=== PATIENT | female | born 1955 | race African-American/Black ===

== ENCOUNTER 2017-01-24 10:59 | Emergency (ER) | payer MEDICARE ==
[~2017-01-24] VITALS: Ht 165.1 cm; Wt 54.4 kg
[~2017-01-24 10:59] MED LIST: ATIVAN2 MG ORAL; VISTARIL50 MG ORAL
[2017-01-24 11:57] LABS: BASOPHILS % (AUTO) 0.7 % (0.0-2.0); EOSINOPHILS % (AUTO) 0.2 % (0.0-3.0); LYMPHOCYTES % (AUTO) 11.7 % (20.0-45.0); MEAN CORPUSCULAR HEMOGLOBIN 27.8 PG (27.0-31.0); MEAN CORPUSCULAR VOLUME 87 FL (80-99); MONOCYTES % (AUTO) 5.6 % (1.0-10.0); NEUTROPHILS % (AUTO) 81.7 % (45.0-75.0); PLATELET COUNT 364 K/UL (150-450); RED BLOOD COUNT 5.26 M/UL (4.20-5.40); RED CELL DISTRIBUTION WIDTH 13.7 % (11.6-14.8); WHITE BLOOD COUNT 15.1 K/UL (4.8-10.8)
[2017-01-24 11:58] LABS: APPEARANCE,URINE CLEAR; KETONES,URINE NEGATIVE (NEGATIVE); LEUKOCYTE ESTERASE ,URINE NEGATIVE (NEGATIVE); NITRITE,URINE NEGATIVE (NEGATIVE); PH,URINE 7 (4.5-8.0); PROTEIN,URINE 2+ (NEGATIVE); UROBILINOGEN,URINE NORMAL MG/DL (0.0-1.0)
[2017-01-24 12:08] LABS: RBC,URINE 0-2 /HPF (0 - 2)
[2017-01-24 12:09] LABS: BACTERIA,URINE FEW /HPF; SQUAMOUS EPITHELIAL CELL,UR FEW /LPF (NONE/OCC); WBC,URINE 0-2 /HPF (0 - 2)
[2017-01-24 12:16] LABS: ACETAMINOPHEN < 10 ug/mL (10-30); ALANINE AMINOTRANSFERASE 10 U/L (3-33); ALBUMIN/GLOBULIN RATIO 1.9 (1.0-2.7); ALCOHOL < 10 mg/dL; ANION GAP 16 (5-15); ASPARTATE AMINO TRANSFERASE 14 U/L (5-40); CALCIUM 10.4 mg/dL (8.6-10.2); CARBON DIOXIDE 23 mEQ/L (20-30); CHLORIDE 100 mEQ/L (98-107); CREATININE 0.7 mg/dL (0.5-0.9); GLOMERULAR FILTRATION RATE > 60 mL/min (>60); HEMOLYSIS 4; POTASSIUM 4.2 mEQ/L (3.4-4.9); SODIUM 139 mEQ/L (135-145); TROPONIN I < 0.30 ng/mL (<=0.30)
--- NOTE | 2017-01-24 12:19 | Diagnostic Imaging Report ---
Indication: SOB Technique: One view of the chest Comparison: none Findings: Lungs and pleural spaces are clear. Heart size is normal. Impression: No acute process
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
[2017-01-24 14:28] VITALS: BP 118/78
[2017-01-24 15:00] VITALS: BP 120/70
[2017-01-24 16:45] VITALS: BP 126/74
[2017-01-24 18:25] VITALS: BP 124/91
[2017-01-24 18:27] VITALS: BP 124/91
== END 2017-01-24 18:28 ==
LOC: EDUNIT# 10:59 → EDBD 10:59 → EMR 11:20
DX: F41.9 Anxiety disorder, unspecified (principal); F29 Unspecified psychosis not due to a substance or known physiological condition; F20.9 Schizophrenia, unspecified; Z88.2 Allergy status to sulfonamides
CPT/HCPCS: 36415; 71010; 80053; 80300; 81003; 84443; 84484; 85025; 99285; G0480; 80329

== ENCOUNTER 2017-07-19 08:57 | Inpatient (IN) | payer MEDICARE, MEDICAID ==
[~2017-07-19] VITALS: Ht 165.1 cm; Wt 72.6 kg
[2017-07-19 16:00] VITALS: BP 122/72
[2017-07-19] MEDS ORDERED: TRAZODONE HCL150 MG ORAL (16:33)
[2017-07-19] MEDS ORDERED: ALPRAZOLAM1 MG ORAL (16:33)
[2017-07-19] MEDS ORDERED: ABILIFY2 MG ORAL (16:33)
[2017-07-19] MEDS ORDERED: NORCO1 E1 ORAL (16:33)
[2017-07-19] MEDS ORDERED: SYNTHROID75 MCG ORAL (16:33)
[2017-07-19] MEDS ORDERED: Zolpidem 5mg tab ORAL PRN (17:00)
[2017-07-19] MEDS: ALPRAZolam 0.5mg tab ORAL SCH (18:06)
[2017-07-19] MEDS: Ertapenem 1 GM in NS 55 ML IVPB SCH (18:07)
[2017-07-19 18:16] LABS: BASOPHILS % (AUTO) 1.3 % (0.0-2.0); EOSINOPHILS % (AUTO) 1.8 % (0.0-3.0); LYMPHOCYTES % (AUTO) 25.9 % (20.0-45.0); MEAN CORPUSCULAR HEMOGLOBIN 30.4 PG (27.0-31.0); MEAN CORPUSCULAR HGB CONC 34.6 G/DL (32.0-36.0); MEAN CORPUSCULAR VOLUME 88 FL (80-99); MEAN PLATELET VOLUME 7.5 FL (6.5-10.1); MONOCYTES % (AUTO) 6.4 % (1.0-10.0); NEUTROPHILS % (AUTO) 64.7 % (45.0-75.0); PLATELET COUNT 272 K/UL (150-450); RED CELL DISTRIBUTION WIDTH 13.6 % (11.6-14.8); WHITE BLOOD COUNT 9.7 K/UL (4.8-10.8)
[2017-07-19 18:46] LABS: ANION GAP 10 (5-15); CALCIUM 9.6 mg/dL (8.6-10.2); CARBON DIOXIDE 27 mEQ/L (20-30); CHLORIDE 102 mEQ/L (98-107); CREATININE 0.7 mg/dL (0.5-0.9); GLOMERULAR FILTRATION RATE > 60 mL/min (>60); HEMOLYSIS 6; POTASSIUM 3.7 mEQ/L (3.4-4.9); SODIUM 139 mEQ/L (135-145)
[2017-07-19 20:00] VITALS: BP 113/68
[2017-07-19] MEDS: TraZODone 100mg tab ORAL SCH (20:39)
[2017-07-19] MEDS: Heparin 5000 units/ml inj SUBQ SCH (20:46)
[2017-07-20 00:13] VITALS: BP 115/70
[2017-07-20 04:17] VITALS: BP 116/65
[2017-07-20] MEDS: Norco 7.5mg/325mg tab ORAL PRN ×3 (06:17→21:07)
[2017-07-20 08:22] VITALS: BP 114/72
--- NOTE | 2017-07-20 08:24 | History & Physical ---
History and Physical History & Physicial 61-year-old female brought in for recent UTI with multidrug resistance. Patient reportedly with dysuria and frequency. Patient denied any fevers or chills at this time. She states that she has a history of thyroiditis as as well as brain tumor but reportedly benigh. Patient has a reported history of paranoid schizophrenia but controlled. Patient is currently disabled but indepedent Allergies: SULFA (SULFONAMIDE ANTIBIOTICS) (Verified Allergy, Unknown, 08/26/16) Past Medical History: schizophrenia, benign brain tumor, thyroiditis Now: No Reviewed of systems: otherwise negative Physical exam WDWN NAD clear breath sounds bilaterally without rhonchi or wheeze [id number] without MRG NABS nontender no HSM no CCE nonfocal Labs Test 07/19/17 18:04 White Blood Count 9.7 K/UL (4.8-10.8) Red Blood Count 4.30 M/UL (4.20-5.40) Hemoglobin 13.1 G/DL (12.0-16.0) Hematocrit 37.8 % (37.0-47.0) Mean Corpuscular Volume 88 FL (80-99) Mean Corpuscular Hemoglobin 30.4 PG (27.0-31.0) Mean Corpuscular Hemoglobin Concent 34.6 G/DL (32.0-36.0) Red Cell Distribution Width 13.6 % (11.6-14.8) Platelet Count 272 K/UL (150-450) Mean Platelet Volume 7.5 FL (6.5-10.1) Neutrophils (%) (Auto) 64.7 % (45.0-75.0) Lymphocytes (%) (Auto) 25.9 % (20.0-45.0) Monocytes (%) (Auto) 6.4 % (1.0-10.0) Eosinophils (%) (Auto) 1.8 % (0.0-3.0) Basophils (%) (Auto) 1.3 % (0.0-2.0) Sodium Level 139 mEQ/L (135-145) Potassium Level 3.7 mEQ/L (3.4-4.9) Chloride Level 102 mEQ/L (98-107) Carbon Dioxide Level 27 mEQ/L (20-30) Anion Gap 10 (5-15) Blood Urea Nitrogen 8 mg/dL (7-23) Creatinine 0.7 mg/dL (0.5-0.9) Estimat Glomerular Filtration Rate > 60 mL/min (>60) Glucose Level 135 mg/dL (74-106) Calcium Level 9.6 mg/dL (8.6-10.2) IMPRESSION MDR UTI possible sepsis psych disorder thyroiditis PLAN IV hydration IV antibiotics ID evaluation resume home meds impression, plan, and exam edited and reviewed in detail care discussed with ZULY HILL Jul 20, 2017 08:23
[2017-07-20] MEDS: ALPRAZolam 0.5mg tab ORAL SCH ×3 (08:41→17:25)
[2017-07-20] MEDS: Heparin 5000 units/ml inj SUBQ SCH ×2 (08:45→21:13)
[2017-07-20] MEDS ORDERED: Ciprofloxacin 500mg tab ORAL SCH (09:00)
--- NOTE | 2017-07-20 10:31 | Diagnostic Imaging Report ---
Indication: Shortness of breath Technique: XRAY CHEST 1 V Comparison: 01/24/17 Findings: Cardiomediastinal silhouette is stable. There are mild linear opacities in the lung bases. There is no consolidation or pleural effusion. Osseous structures are stable. Atherosclerotic changes are seen. Impression: Mild linear lung base opacities could represent atelectasis. No obvious consolidation. Followup recommended.
[2017-07-20 12:51] VITALS: BP 123/64
[2017-07-20] MEDS ORDERED: Tubing IV Secondary IV ONE (16:08)
[2017-07-20] MEDS ORDERED: NS 550ML IV ONE (16:08)
[2017-07-20 16:53] VITALS: BP 114/78
[2017-07-20] MEDS: Ertapenem 1 GM in NS 55 ML IVPB SCH (17:26)
[2017-07-20 20:00] VITALS: BP 129/79
[2017-07-20] MEDS: TraZODone 100mg tab ORAL SCH (21:06)
--- NOTE | 2017-07-20 22:15 | Consultation ---
DATE OF CONSULTATION: 07/20/2017 INFECTIOUS DISEASE CONSULTATION This consult is for coverage of Dr. Banegas. CONSULTING PHYSICIAN: Louis Brown M.D. PRIMARY ATTENDING PHYSICIAN: Meek Higgins M.D. REASON FOR CONSULT: UTI. HISTORY OF PRESENT ILLNESS: This is a 62-year-old white female, admitted yesterday from home. The patient had a recent history of urinary symptoms. She had to go to the bathroom frequently. Urine culture was positive for multi-drug resistant organism, but unfortunately it is not available in the chart. The patient had no fever or chills. No systemic symptoms. PAST MEDICAL HISTORY: Significant for paranoid schizophrenia and pituitary tumor. According to the patient, the patient has benign hypothyroidism. ALLERGIES: Allergic to aspirin and sulfa drugs. MEDICATIONS: Protonix, Abilify, Cipro, levothyroxine, heparin, trazodone, ertapenem, alprazolam, Tylenol, Ambien, Mylanta, and [place]. SOCIAL HISTORY: She lives alone, single. She smokes 10 cigarettes a day. Denies alcohol or drug abuse. REVIEW OF SYSTEMS: No fever. No chills. She has occasional cough. No nausea. No vomiting. No diarrhea. No significant dysuria, but has frequency and urgency. She has some lower back pain. PHYSICAL EXAMINATION: GENERAL APPEARANCE: She is in no acute distress. Awake, alert, and responsive. VITAL SIGNS: Temperature 98.1 degrees, pulse 81, and blood pressure 114/72. HEAD AND NECK: No oral lesion. HEART: S1 and S2 regular. LUNGS: Clear. ABDOMEN: Soft, nontender. No CVA tenderness. EXTREMITIES: She has no edema. NEURO: She is awake, alert, oriented, and responsive. LABORATORY AND DIAGNOSTIC DATA: WBC 9.7, hemoglobin 13.1, hematocrit 37.8, and platelet 272,000. Sodium 139, potassium 3.7, chloride 102, bicarbonate 27, BUN 8, and creatinine 0.7. Glucose is unspecified. IMPRESSION: 1. Urinary tract infection with urinary symptoms, likely cystitis. The patient has nicotine dependence. 2. Schizophrenia. 3. Hypothyroidism. 4. History of benign brain tumor. RECOMMENDATION: We will continue with ertapenem. We will discontinue Cipro. Discussed about smoking cessation with the patient and we will start nicotine patch. At the end of my exam, I thank, Dr. Higgins, for involving me in the care of this patient. Louis Brown M.D. DR: BRENT JOB#: [id number] CC:
[2017-07-21] MEDS: Norco 7.5mg/325mg tab ORAL PRN ×4 (03:57→20:45)
[2017-07-21 04:00] VITALS: BP_SYST 142; BP_SYST 162; BP_DIAS 65
[2017-07-21 08:00] VITALS: BP 132/75
[2017-07-21] MEDS: ALPRAZolam 0.5mg tab ORAL PRN ×2 (08:03→16:00)
[2017-07-21] MEDS: Heparin 5000 units/ml inj SUBQ SCH ×3 (08:06→20:37)
--- NOTE | 2017-07-21 12:11 | Infectious Diseases Prog Note ---
Assessment/Plan Assessment/Plan antibiotics : ertapenem A 1. UTI 2. schizophrenia 3. hypothyroidism P 1. continue ertapenem 2. will follow up cultures Subjective Constitutional: Denies: chills, fever Respiratory: Denies: dry cough, shortness of breath Gastrointestinal/Abdominal: Denies: diarrhea, nausea, vomiting Musculoskeletal: Reports: pain - body Allergies: Coded Allergies: ASPIRIN (Verified Allergy, Unknown, hives, 07/19/17) SULFA (SULFONAMIDE ANTIBIOTICS) (Verified Allergy, Unknown, 08/26/16) Objective Vital Signs Last 24 Hour Vital Signs Date Time Temp Pulse Resp B/P Pulse Ox O2 Delivery O2 Flow Rate FiO2 07/21/17 09:53 97.9 07/21/17 08:00 97.5 69 18 132/75 97 Room Air 07/21/17 04:00 97.9 61 18 142/65 98 Room Air 07/20/17 21:07 97.2 07/20/17 20:00 97.2 72 18 129/79 95 Room Air 07/20/17 16:53 98.0 70 20 114/78 97 Room Air 07/20/17 12:51 98.7 66 18 123/64 97 Room Air Height (Feet): 5 Height (Inches): 5.00 Weight (Pounds): 160 Respiratory/Chest: lungs clear Cardiovascular: normal rate, regular rhythm, no gallop/murmur Abdomen: soft, non tender Extremities: no edema Microbiology Date/Time Source Procedure Growth Status 07/19/17 18:04 Blood Blood Culture - Preliminary NO GROWTH AFTER 24 HOURS Resulted 07/19/17 17:50 Blood Blood Culture - Preliminary NO GROWTH AFTER 24 HOURS Resulted 07/19/17 17:00 Urine,Clean Catch Urine Culture - Preliminary Mixed Gram Positive Organism Resulted ELI RUDD Jul 21, 2017 12:11
[2017-07-21 12:15] VITALS: BP 105/75
[2017-07-21 16:05] VITALS: BP 115/72
[2017-07-21] MEDS: Ertapenem 1 GM in NS 55 ML IVPB SCH (17:45)
--- NOTE | 2017-07-21 18:01 | General Progress Note ---
Assessment/Plan Assessment/Plan IMPRESSION MDR UTI possible sepsis psych disorder thyroiditis PLAN IV hydration as is IV antibiotics ID evaluation noted care noted await further care impression, plan, and exam edited and reviewed in detail care discussed with RN Subjective Allergies: Coded Allergies: ASPIRIN (Verified Allergy, Unknown, hives, 07/19/17) SULFA (SULFONAMIDE ANTIBIOTICS) (Verified Allergy, Unknown, 08/26/16) Subjective co pain and anxiety Objective Last 24 Hour Vital Signs Date Time Temp Pulse Resp B/P Pulse Ox O2 Delivery O2 Flow Rate FiO2 07/21/17 16:05 98.2 76 18 115/72 98 Room Air 07/21/17 15:10 97.0 07/21/17 12:15 97.0 71 18 105/75 95 Room Air 07/21/17 08:00 97.5 69 18 132/75 97 Room Air 07/21/17 04:00 97.9 61 18 142/65 98 Room Air 07/20/17 21:07 97.2 07/20/17 20:00 97.2 72 18 129/79 95 Room Air Intake and Output 07/20/17 07/21/17 19:00 07:00 Intake Total 720 ml 500 ml Balance 720 ml 500 ml Intake Oral 720 ml 500 ml # Voids 1 2 Labs Test 07/19/17 18:04 White Blood Count 9.7 K/UL (4.8-10.8) Red Blood Count 4.30 M/UL (4.20-5.40) Hemoglobin 13.1 G/DL (12.0-16.0) Hematocrit 37.8 % (37.0-47.0) Mean Corpuscular Volume 88 FL (80-99) Mean Corpuscular Hemoglobin 30.4 PG (27.0-31.0) Mean Corpuscular Hemoglobin Concent 34.6 G/DL (32.0-36.0) Red Cell Distribution Width 13.6 % (11.6-14.8) Platelet Count 272 K/UL (150-450) Mean Platelet Volume 7.5 FL (6.5-10.1) Neutrophils (%) (Auto) 64.7 % (45.0-75.0) Lymphocytes (%) (Auto) 25.9 % (20.0-45.0) Monocytes (%) (Auto) 6.4 % (1.0-10.0) Eosinophils (%) (Auto) 1.8 % (0.0-3.0) Basophils (%) (Auto) 1.3 % (0.0-2.0) Sodium Level 139 mEQ/L (135-145) Potassium Level 3.7 mEQ/L (3.4-4.9) Chloride Level 102 mEQ/L (98-107) Carbon Dioxide Level 27 mEQ/L (20-30) Anion Gap 10 (5-15) Blood Urea Nitrogen 8 mg/dL (7-23) Creatinine 0.7 mg/dL (0.5-0.9) Estimat Glomerular Filtration Rate > 60 mL/min (>60) Glucose Level 135 mg/dL (74-106) Calcium Level 9.6 mg/dL (8.6-10.2) Height (Feet): 5 Height (Inches): 5.00 Weight (Pounds): 160 Objective WDWN NAD clear breath sounds bilaterally without rhonchi or wheeze [id number] without MRG NABS nontender no HSM no CCE nonfocal ZULY BUSTAMANTE Jul 21, 2017 18:01
[2017-07-21 20:00] VITALS: BP 118/75
[2017-07-21] MEDS: TraZODone 100mg tab ORAL SCH (20:38)
[2017-07-22] VITALS: BP 110/71
[2017-07-22] MEDS: ALPRAZolam 0.5mg tab ORAL PRN ×2 (00:27→09:05)
[2017-07-22] MEDS: Norco 7.5mg/325mg tab ORAL PRN ×2 (03:04→07:48)
[2017-07-22 04:00] VITALS: BP 120/75
[2017-07-22 07:29] VITALS: BP 119/96
--- NOTE | 2017-07-22 08:42 | General Progress Note ---
Assessment/Plan Assessment/Plan IMPRESSION MDR UTI possible sepsis psych disorder thyroiditis PLAN IV hydration to dc IV antibiotics to dc repeat urine culture negative ID evaluation noted care noted dc home and complete cipro home health on discharge for nursing impression, plan, and exam edited and reviewed in detail care discussed with RN Subjective Allergies: Coded Allergies: ASPIRIN (Verified Allergy, Unknown, hives, 07/19/17) SULFA (SULFONAMIDE ANTIBIOTICS) (Verified Allergy, Unknown, 08/26/16) Subjective co pain and anxiety no dysuria no frequency Objective Last 24 Hour Vital Signs Date Time Temp Pulse Resp B/P Pulse Ox O2 Delivery O2 Flow Rate FiO2 07/22/17 07:29 98.0 77 20 119/96 95 Room Air 07/22/17 04:00 97.7 79 18 120/75 98 Room Air 07/22/17 00:00 97.0 76 18 110/71 100 Room Air 07/21/17 20:00 97.0 84 18 118/75 94 Room Air 07/21/17 16:05 98.2 76 18 115/72 98 Room Air 07/21/17 15:10 97.0 07/21/17 12:15 97.0 71 18 105/75 95 Room Air Intake and Output 07/21/17 07/22/17 19:00 07:00 Intake Total 450 ml 720 ml Balance 450 ml 720 ml Intake Oral 450 ml 720 ml # Voids 4 2 Height (Feet): 5 Height (Inches): 5.00 Weight (Pounds): 160 Objective WDWN NAD clear breath sounds bilaterally without rhonchi or wheeze [id number] without MRG NABS nontender no HSM no CCE nonfocal ZULY BUSTAMANTE Jul 22, 2017 08:42
[2017-07-22] MEDS: Heparin 5000 units/ml inj SUBQ SCH (09:00)
[2017-07-22 11:23] VITALS: BP 120/76
--- NOTE | 2017-07-24 11:42 | Discharge Summary ---
Discharge Summary Hospital Course Date of Admission Jul 19, 2017 at 15:30 Date of Discharge Jul 22, 2017 at 12:05 Admitting Diagnosis HPI Natividad Velazquez is a 62 year old female who was admitted on Jul 19, 2017 at 15: 30 for Urinary Tract Infection Hospital Course [id number] Discharge Discharge Disposition Patient was discharged to Home with Home Health(06) Discharge Diagnoses: Zoe Daniels NP Jul 24, 2017 11:42
--- NOTE | 2017-07-25 06:31 | Discharge Summary 2 SIG ---
DATE OF ADMISSION: 07/19/2017 DATE OF DISCHARGE: 07/22/2017 BRIEF HOSPITAL COURSE: The patient is a 61-year-old female, who was a direct admit, was brought into the hospital for a recent UTI with multidrug resistance. The patient reportedly had dysuria and frequency. She has a history of thyroiditis as well as brain tumor and history of paranoid schizophrenia. She is currently disabled, but independent. She was admitted for MDR UTI and possible sepsis. She was started on IV hydration and was started on ertapenem by Infectious Disease specialist. Urine culture showed growth of mixed Gram-positive organisms and blood culture did not isolate any growth. She was then discharged home to complete ciprofloxacin. FINAL DIAGNOSES: 1. Multidrug-resistant urinary tract infection. 2. Possible sepsis. 3. Psychiatric disorder. 4. Thyroiditis. DISPOSITION: The patient was discharged home with home health. DISCHARGE MEDICATIONS: Refer to medication list. FOLLOWUP: Followup was advised to follow up in clinic in a week. ACTIVITY: As tolerated. Meek Higgins M.D. I have been assigned to dictate discharge summary on this account and I was not involved in the patient's management. Zoe Daniels N.P. DR: Gi JOB#: [id number] CC: JOSE
== END 2017-07-22 12:05 | disposition home or self-care (01) | DRG 872 ==
LOC: 3E 15:30
DX: A41.9 Sepsis, unspecified organism (principal); F20.0 Paranoid schizophrenia; N30.00 Acute cystitis without hematuria; N39.0 Urinary tract infection, site not specified; E06.9 Thyroiditis, unspecified; Z88.2 Allergy status to sulfonamides; Z88.6 Allergy status to analgesic agent; B96.89 Other specified bacterial agents as the cause of diseases classified elsewhere; Z16.24 Resistance to multiple antibiotics; F17.200 Nicotine dependence, unspecified, uncomplicated
CPT/HCPCS: 36415; 71010; 80048; 85025; 87040; 87086